=== PATIENT | male | born 1960 | race Caucasian/White ===

== ENCOUNTER 2024-04-27 11:49 | Inpatient (IN) | payer MEDICAID, SELFPAY ==
[2024-04-27] VITALS (8 sets, daily range): BP systolic 123–144; BP diastolic 78–90; PULSE 57–130; RESP 14–96; TEMP 36.2–36.8; O2SAT 96–98; BMI 23.6
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
--- NOTE | 2024-04-27 12:27 | XR_ITS ---
Examination: CT brain head without contrast. 2-D sagittal coronal reconstructions Date and time of exam: April 27, 2024 1230 hrs. Comparison May 19, 2018 Indications: CT stroke alert, onset focal neurologic deficit today CTDI: vol (mGy):50 DLP: (mGycm):1038 Technique: Multiple CT axial sections of the brain have been obtained, 5 mm slice thickness. Contrast has not been administered. 2-D sagittal, coronal reconstructions have been obtained Low dose protocols were performed. One or more of the following dose reduction techniques were used; automated exposure control, adjustment of the mA and/or KV according to patient size, use of iterative reconstruction technique. Findings: No significant ventricular enlargement. Intra-axial or extra-axial hemorrhage density is not seen. No mass effect or midline shift Basal cisterns are not remarkable. Fourth ventricle is midline. Cranial vault intact. Impression: Negative for acute hemorrhage, mass effect or midline shift Consider brain MRI follow-up stroke protocol
--- NOTE | 2024-04-27 12:27 | EKG_ITS ---
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
--- NOTE | 2024-04-27 12:27 | XR_ITS ---
Examination: CTA carotids with intravenous contrast CTA brain, head with intravenous contrast. 2-D sagittal, coronal reconstructions. 3-D reconstructions. Exam date and time: April 27, 2023 1242 hrs. Indications: Stroke alert, onset focal neurologic deficit today CTDI: vol (mGy) 17.7 DLP: (mGycm) 434 Technique: Multiple CTA axial brain, head carotid images post intravenous contrast injection 75 cc, [id number]. 2-D sagittal, coronal reconstructions. 3-D reconstructions, 3-D post processing including vascular maximum intensity projection images. Low dose protocols were performed. One or more of the following dose reduction techniques were used; automated exposure control, adjustment of the mA and/or KV according to patient size, use of iterative reconstruction technique. Findings: No significant common carotid carotid bifurcation or internal carotid artery stenoses Left vertebral artery dominant no critical vertebral artery stenoses No cerebral large vessel arterial occlusions, thrombus, dissection or cerebral aneurysm Impression: No significant neck arterial stenoses No cerebral large vessel arterial occlusions, thrombus, dissection or cerebral aneurysm
[2024-04-27 12:43] LABS: Basophils # (Auto) 0.1 Thou/mm3 (0.0-0.2); Basophils % (Auto) 1 % (0-2.5); Eosinophils # (Auto) 0.1 Thou/mm3 (0.0-0.5); Eosinophils % (Auto) 1 % (0-10); Hematocrit 52.3 % (41.0-53.0); Hemoglobin 17.9 g/dL (13.5-16.0); Immature Granulocytes % (Auto) 0 % (0-0); Immature Granulocytes Auto 0.03 Thou/mm3 (0.00-0.00); Lymphocytes # (Auto) 2.6 Thou/mm3 (1.0-4.8); Lymphocytes % (Auto) 27 % (10-50); Mean Corpuscular HGB Conc 34.2 g/dl (31.0-37.0); Mean Corpuscular Hemoglobin 32.6 pg (25.0-35.0); Mean Corpuscular Volume 95 fL (80-100); Monocytes # (Auto) 0.8 Thou/mm3 (0.0-0.8); Monocytes % (Auto) 8 % (0-12); Neutrophils # (Auto) 6.2 Thou/mm3 (1.8-7.7); Neutrophils % (Auto) 64 % (37-80); Nucleated Red Blood Cell % 0 /100 WBC (0); Platelet Count 262 Thou/mm3 (140-440); RDW Standard Deviation 50.4 fL (35.1-43.9); Red Blood Count 5.49 Miln/mm3 (4.50-5.90); White Blood Count 9.6 Thou/mm3 (3.8-10.6)
[2024-04-27 12:57] LABS: HCG Titer if Positive Negative
[2024-04-27 12:59] LABS: Partial Thromboplastin Time 29.1 Seconds (22.0-36.0); Prothrombin Time 11.1 Seconds (9.0-12.2)
--- NOTE | 2024-04-27 12:59 | PRELIM_ITS ---
CT scan of the head without intravenous contrast (axial sections with sagittal, coronal and 3D reform ats) April 27, 2024 at 1230 hoursClinical history: Focal neuro deficit, stroke suspected.Compariso n: No prior study is available for comparison at the time of interpretation. Findings:There is no kimberly dence of intracranial hemorrhage, mass effect or midline shift. No definitive wedge-shaped acute infa rcts are detected. There is mild volume loss. The calvarium is unremarkable. The mastoid air cells an d the visualized paranasal sinuses are clear.Impression:No evidence of acute infarct, intracranial he morrhage, mass effect or midline shift. If there are persistent clinical symptoms or additional clini silvino concerns, consider MRI. Mild volume loss.Discussion Details: Results verbally communicated to : Dr. Loomis at 12:43 PM 04/27/2024 Report Electronically Signed By: Hetal Greenberg 04/27/2024 12:58:43 PM [EST]
[2024-04-27 13:03] LABS: Alanine Aminotransferase 68 U/L (10-49); Albumin, Serum 4.8 gm/dL (3.4-4.8); Alkaline Phosphatase 106 U/L (46-116); Anion Gap 7 (7-16); Aspartate Amino Transferase 44 U/L (0-34); BUN/Creatinine Ratio 13 Ratio (12-20); Bilirubin,Total 0.8 mg/dL (0.3-1.2); Blood Urea Nitrogen 14 mg/dL (9-23); Calcium 10.3 mg/dL (8.3-10.6); Calcium (Corrected) 10.3 mg/dL (8.5-10.1); Chloride 104 mMol/L (98-107); Creatinine (Component) 1.1 mg/dL (0.6-1.3); Estimated Creatinine Clearance 70.5 mL/min (>60); Globulin 2.4 gm/dL (2.3-3.5); Glucose 100 mg/dL (74-106); Magnesium 2.1 mg/dL (1.6-2.6); Osmolality,Calculated 276 (275-295); Potassium 3.9 mMol/L (3.4-5.1); Sodium 138 mMol/L (136-145); Total Protein 7.2 gm/dL (5.7-8.2); Troponin I < 0.020 ng/mL (0.0-0.045); eGFR > 60 See Note
--- NOTE | 2024-04-27 13:14 | ESCONSULT_ITS ---
Tele Neuro Consultation Consultation Date 04/27/24 Most Recent Vital Signs Last Vital Signs Temp 98.0 F 04/27/24 12:07 Pulse 76 04/27/24 13:03 Resp 25 H 04/27/24 13:03 BP 137/87 H 04/27/24 12:07 Pulse Ox 96 04/27/24 12:07 O2 Del Method Room Air 04/27/24 12:07 Laboratory-Coagulation Panel PT 11.1 Seconds (9.0-12.2) 04/27/24 12:28 INR 1.0 (0.9-1.3) 04/27/24 12:28 APTT 29.1 Seconds (22.0-36.0) 04/27/24 12:28 Consultation Narrative [facility] Tele[facility]urology Consult Services Patient Name:???ANIVAL MULLINS Date of :???1960 Date of Service:???04/27/2024 12:27:08 Diagnosis:?H53.9 - Visual disturbance, unspecified Impression: ?63 yo RH M with PMH of HLD, who presents to ED with right eye visual disturbance. NIHSS of 0. Exam notable for impaired vision of the nasal/medial bear of the right eye. ?CTH without hemorrhage. Outside thrombolytic window. Fundoscopic exam in ED without obvious intraocular pathology. ?Differential includes branch retinal artery occlusion vs retinal pathology. ?Recommend initiating aspirin and admission for stroke work up, and ophthalmology evaluation. Our recommendations are outlined below. Recommendations: ? Stroke/Telemetry Floor ? Neuro Checks ? Bedside Swallow Eval ? DVT Prophylaxis ? IV Fluids, Normal Saline ? Euglycemia and Avoid Hyperthermia (PRN Acetaminophen) ? Hold Anticoagulation for Now ? Initiate or continue Aspirin 81 MG daily ? Antihypertensives PRN if Blood pressure is greater than 220/120 or there is a concern for End organ damage/contraindications for permissive HTN. If blood pressure is greater than 220/120 give labetalol PO or IV or Vasotec IV with a goal of 15% reduction in BP during the first 24 hours. Sign Out: ? Discussed with Emergency Department Provider Advanced Imaging:Advanced imaging has been ordered. Results pending. Metrics: Last Known Well: 04/27/2024 08:00:15 Dispatch Time: 04/27/2024 12:27:08 Arrival Time: 04/27/2024 11:49:51 Initial Response Time: 04/27/2024 12:29:37Symptoms: right eye vision loss. Initial patient interaction: 04/27/2024 12:38:06 NIHSS Assessment Completed: 04/27/2024 12:46:03Patient is not a candidate for Thrombolytic. Thrombolytic Medical Decision: 04/27/2024 12:46:04Patient was not deemed candidate for Thrombolytic because of following reasons: LKW outside 4.[address] head showed no acute hemorrhage or acute core infarct. Primary Provider Notified of Diagnostic Impression and Management Plan on: 04/27/2024 13:06:08 History of Present Illness:Patient is a 63 year old Male. Patient was brought by private transportation with symptoms of right eye vision loss. 63 yo RH M with PMH of HLD, who presents to ED with right eye visual disturbance. Patient reports onset of right eye vision loss this morning. It was painless but he sees lighting strikes and purple colors in his right eye visual field and he can make some things out but it seems to come and go. He had an episode of right eye blindness yesterday that lasted 2 minutes. He reports drinking a 6 pack of alcohol per day. Denies headache, eye pain, fever, rash, jaw claudication, trouble with speech or swallowing, numbness. ? Past Medical History: ?Hyperlipidemia ?There is no history of Coronary Artery Disease ?There is no history of Stroke Medications: No Anticoagulant use? No Antiplatelet use Reviewed EMR for current medications Allergies:? NKDA Social History: Smoking: Yes Alcohol Use: Yes Family History: There is no family history of premature cerebrovascular disease pertinent to this consultation ROS : 14 Points Review of Systems was performed and was negative except mentioned in HPI. Past Surgical History: There Is No Surgical History Contributory To Today?s Visit ? Examination: BP(137/87),?Pulse(82),?Blood Glucose(111) 1A: Level of Consciousness - Alert; keenly responsive?+ 0 1B: Ask Month and Age - Both Questions Right?+ 0 1C: Blink Eyes & Squeeze Hands - Performs Both Tasks?+ 0 2: Test Horizontal Extraocular Movements - Normal?+ 0 3: Test Visual Bear - No Visual Loss?+ 0 4: Test Facial Palsy (Use Grimace if Obtunded) - Normal symmetry?+ 0 5A: Test Left Arm Motor Drift - No Drift for 10 Seconds?+ 0 5B: Test Right Arm Motor Drift - No Drift for 10 Seconds?+ 0 6A: Test Left Leg Motor Drift - No Drift for 5 Seconds?+ 0 6B: Test Right Leg Motor Drift - No Drift for 5 Seconds?+ 0 7: Test Limb Ataxia (FNF/Heel-[place]) - No Ataxia?+ 0 8: Test Sensation - Normal; No sensory loss?+ 0 9: Test Language/Aphasia - Normal; No aphasia?+ 0 10: Test Dysarthria - Normal?+ 0 11: Test Extinction/Inattention - No abnormality?+ 0 NIHSS Score:?0 Pre-Morbid Modified Liberty Scale:0 Points = No symptoms at all Spoke with :?Dr. Lawson This consult was conducted in real time using interactive audio and video technology. Patient was informed of the technology being used for this visit and agreed to proceed. Patient located in hospital and provider located at home/office setting. Patient is being evaluated for possible acute neurologic impairment and high probability of imminent or life-threatening deterioration. I spent total of 51 minutes providing care to this patient, including time for face to face visit via telemedicine, review of medical records, imaging studies and discussion of findings with providers, the patient and/or family. Dr Elias Wells [facility] For Inpatient follow-up with [facility] physician please call [facility] at . As we are not an outpatient service for any post hospital discharge needs please contact the hospital for assistance. If you have any questions for the [facility] physicians or need to reconsult for clinical or diagnostic changes please contact us via [facility] at .
[2024-04-27] MEDS: Aspirin 325 MG TABLET PO (13:19)
--- NOTE | 2024-04-27 13:20 | PC.NURSE ---
A REQUEST TO [facility] FOR OPHTHALMOLOGY WAS FAXED, AND IMAGES WERE TRANSFER FROM [facility]
--- NOTE | 2024-04-27 13:26 | PC.NURSE ---
[facility] ON GETTING REPORT FROM CAROL THE PROVIDER
--- NOTE | 2024-04-27 13:40 | PRELIM_ITS ---
CT angiogram of the head and neck with intravenous contrast (axial sections with sagittal and coronal reformats): 3D/MIP reformats are not provided: April 27, 2024 at 1247 hours Clinical History: Foc al neuro deficit, stroke suspectedComparison: Concurrent noncontrast CT head performed today.Findings :Head: The internal carotid, middle and anterior cerebral arteries are patent bilaterally. The intrac ranial vertebral arteries are patent. The vertebrobasilar junction, basilar and posterior cerebral ar teries are patent. 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 origin of the left posterior cerebral ar hank is noted. No evidence of large vessel occlusion, critical stenosis or aneurysm.Neck: The aortic arch to the extent visualized as well as the origins of the right brachiocephalic, left common caroti d, and left subclavian arteries are patent. The common carotid arteries, carotid bulbs, and internal and external carotid arteries are patent. The origins of the vertebral arteries are unremarkable. The left vertebral artery is dominant. No evidence of vascular occlusion, critical stenosis, dissection or aneurysm.The soft tissues of the neck are unremarkable. Degenerative changes are identified in the spine. Emphysematous changes are noted in the visualised lungs.Impression: Head: No evidence of larg e vessel occlusion, critical stenosis or aneurysm.Neck: No evidence of vascular occlusion, critical s tenosis, dissection or aneurysm.Discussion Details: Results verbally communicated to : Dr. Londono at 01:33 PM 04/27/2024 Report Electronically Signed By: Todd Pdero 04/27/2024 1:39:37 PM [EST]
--- NOTE | 2024-04-27 14:59 | ESHP_ITS ---
Documentation for date of: 04/27/24 HPI History of Present Illness History of present illness: Chief complaint: Partial vision loss in the right eye HPI: Mr. Whelan is a 63-year-old pleasant male with past medical history of hyperlipidemia, chronic smoking and alcohol use disorder, who presented to the ED on 04/27/2020 for with acute right eye partial vision loss. Patient has experienced symptoms in the past, twice, which resolved spontaneously within an hour on both occasions. However on this occurrence, patient had persistent right eye visual field loss more prominent in the right lower visual field, since 8:30 AM this morning. Presentation to the ED close around 1 PM, when symptoms continue to persist which was unusual for him. He denies any recent infections, fever, headaches, loss of balance/dizziness, migraine or congestion. He has no other associated symptoms. There is no excessive lacrimation from the right eye, he denies any sensation of curtain falling over the visual field or discomfort around the orbital area. In the ED, vitals were within normal limits. Blood sugar on fingerstick 125 Mg/DL. Initial laboratory workup was remarkable for erythrocytosis Hb 17.9 but normal HCT 52.3%, normal coagulation panel and CMP fairly within normal limits. Head CT was negative for any acute findings. Head/neck CTA was also negative for any acute occlusion. EKG showed possible anterior myocardial infarction. Ophthalmology and therapy was consulted by ED, who recommended admission and stroke workup, and likely ophthalmologic pathology. Patient was admitted for the work-up and management of acute CVA rule out versus ocular migraine versus amaurosis fugax. Inpatient neurology Dr Fox is consulted, pending recommendations. Medication list: Statin therapy Vitamin D (OTC) Allergies: NKFDA Social history: Marital?Status:? Tobacco?Use:?>45 pack years ETOH?Use:?6 pack of beers a day for >15 years Drug?Note:?Denies Social?History?Note:?Lives?at home with family Family history: T2DM - mother Cancer - distant family Review of Systems Review of Systems Narrative Review of Systems: GENERAL: Denies fevers/chills or diaphoresis. HEENT: Denies headache. Denies nasal discharge. RT eye peripheral lower visual field loss NEURO: Denies unusual weakness or difficulty speaking. CARDIO: Denies chest pain or palpitations. PULM: Denies SOB, coughing, or wheezing. GI: Denies abdominal pain, N/V/C/D. Reports having BMs URO: Denies burning/itching/pain/urinary changes. MSK/EXT/SKIN: Denies joint/skeletal/muscle pain, issues/changes in upper or lower extremities, itchiness, or superficial pain. PSYCH: Cooperative, pleasant mood & affect. The rest of the review of systems is otherwise negative. Exam Vital Signs Temp Pulse Resp BP Pulse Ox O2 Del Method 97.8 F 60 17 123/78 96 Room Air 04/27/24 14:31 04/27/24 14:31 04/27/24 14:31 04/27/24 14:31 04/27/24 14:31 04/27/24 14:31 Narrative Exam Constitutional Alert, oriented x3 and comfortable HEENT Patent nares. Trachea midline. RT lateral lower visual field blurriness Respiratory Chest normal on inspection and clear to auscultation bilaterally. Cardiovascular S1 and S2 audible, RRR. No murmurs or carotid bruit. No gross JVD. Abdominal Soft and non tender to palpation in all quadrants. BS + Genitourinary No bladder tenderness, no flank pain. Normal to palpation. Musculoskeletal Extremities tone within normal limits. No LE edema. Neurological CN II - XII grossly intact. Extremity motor and sensation grossly intact. Skin Warm, dry and intact. No apparent lesions. Psychiatric Patient has a good affect, is cooperative Results: Labs 04/28/24 04:56 04/28/24 04:56 Labs: Short CBC 04/27/24 Range/Units 12:28 WBC 9.6 (3.8-10.6) Thou/mm3 Hgb 17.9 H* (13.5-16.0) g/dL Hct 52.3 (41.0-53.0) % Plt Count 262 (140-440) Thou/mm3 BMP 04/27/24 12:28 Sodium 138 Potassium 3.9 Chloride 104 Carbon Dioxide 27.0 BUN 14 Creatinine 1.1 Glucose 100 Calcium 10.3 Cardiac Enzymes 04/27/24 Range/Units 12:28 Troponin I < 0.020 (0.0-0.045) ng/mL Liver Function 04/27/24 Range/Units 12:28 Total Bilirubin 0.8 (0.3-1.2) mg/dL AST 44 H (0-34) U/L ALT 68 H (10-49) U/L Alkaline Phosphatase 106 (46-116) U/L Albumin 4.8 (3.4-4.8) gm/dL Quality Measures Quality Measures VTE prophylaxis and stroke Suspected type of Stroke: Unknown at this time Tenecteplase given: Reason(s) Tenecteplase not given: Stroke severity too mild (non-disabling) and Unable to determine eligibility not given Rehab services: PT evaluation ordered and Speech Language Pathology eval ordered VTE Prophylaxis: pharmaceutical Antithrombotic by day 2:: ordered Statin ordered: <75 y/o high intensity dose Anticoagulation ordered for A-fib or flutter (current or hx): not indicated Medications Home Medications and Allergies Home Medications ?Medication ?Instructions ?Recorded ?Confirmed ?Type ezetimibe 10 mg tablet 10 mg QDAY 04/27/24 04/27/24 History Allergies Allergy/AdvReac Type Severity Reaction Status Date / Time No Known Allergies Allergy Verified 04/27/24 11:52 Visit Medications Acetaminophen (Acetaminophen 325 Mg Tablet) 650 mg PO Q6H PRN PRN Reason: Fever >100.3 Stop: 05/27/24 14:23 Enoxaparin Sodium (Enoxaparin Sod Inj 40 Mg/0.4 Ml Syringe) 40 mg SC QDAY [facility] Stop: 05/12/24 08:59 Lactated Ringer's (Lactated Ringers) 1,000 mls @ 75 mls/hr IV .[id number] [facility] Stop: 04/28/24 14:29 Ondansetron HCl (Ondansetron Inj 2 Mg/Ml Inj 2 Ml) 4 mg IV Q4HR PRN PRN Reason: NAUSEA OR VOMITING Stop: 05/27/24 12:26 Ondansetron HCl (Ondansetron Inj 2 Mg/Ml Inj 2 Ml) 4 mg IV Q6H PRN; Protocol PRN Reason: NAUSEA OR VOMITING Stop: 05/27/24 14:23 Discontinued Medications Aspirin (Aspirin 325 Mg Tablet) 325 mg PO X1 ONE Stop: 04/27/24 13:12 Last Admin: 04/27/24 13:19 Dose: 325 mg Fluorescein Sodium (Fluorescein Sod 1 Mg Strp) 1 mg RIGHT EYE X1 ONE Stop: 04/27/24 12:20 Last Admin: 04/27/24 13:02 Dose: Not Given Labetalol HCl (Labetalol Inj 5 Mg/Ml Vial 20 Ml) 10 mg IVP X1 ONE Stop: 04/27/24 14:30 Tetracaine HCl (Tetracaine Pf Op Leslie 0.5% 4 Ml Drpette) 1 drop RIGHT EYE X1 ONE Stop: 04/27/24 12:20 Last Admin: 04/27/24 13:02 Dose: Not Given Assessment & Plan Plan Mr. Whelan is a 63-year-old pleasant male with past medical history of hyperlipidemia, chronic smoking and alcohol use disorder, who presented to the ED on 04/27/2020 for with acute right eye partial vision loss. Patient has experienced symptoms in the past, twice, which resolved spontaneously within an hour on both occasions. However on this occurrence, patient had persistent right eye visual field loss more prominent in the right lower visual field, since 8:30 AM this morning. Presentation to the ED close around 1 PM, when symptoms continue to persist which was unusual for him. He denies any recent infections, fever, headaches, loss of balance/dizziness, migraine or congestion. He has no other associated symptoms. There is no excessive lacrimation from the right eye, he denies any sensation of curtain falling over the visual field or discomfort around the orbital area. In the ED, vitals were within normal limits. Blood sugar on fingerstick 125 Mg/DL. Initial laboratory workup was remarkable for erythrocytosis Hb 17.9 but normal HCT 52.3%, normal coagulation panel and CMP fairly within normal limits. Head CT was negative for any acute findings. Head/neck CTA was also negative for any acute occlusion. EKG showed possible anterior myocardial infarction. Ophthalmology and therapy was consulted by ED, who recommended admission and stroke workup, and likely ophthalmologic pathology. Patient was admitted for the work-up and management of acute CVA rule out versus ocular migraine versus amaurosis fugax. Inpatient neurology Dr Fox is consulted, pending recommendations. 1. RT lateral lower visual field loss secondary to 2. Ischemic CVA r/o 3. Occular migraine vs. Amaurosis fugax in the setting of 4. Tobacco smoking (>45 pack years) - Head CT: Negative for any acute findings - Head CTA: Negative for occlusions - NIHSS of 0. Exam notable for impaired vision of the nasal/medial green of the right eye. CTH without hemorrhage. - TeleNeuro Dr Wells consulted, per recommendations, he is outside thrombolytic window. Initiate aspirin and admission for stroke work up, and ophthalmology evaluation. - History of > 45 pack years of smoking, tobacco only. Plan: Patient is started on stroke protocol - Neuro Checks q 4H - Head of Bed elevated to 30 Degrees - Avoid hyperthermia. PRN Acetaminophen for fever >100.3 - Allow permissive HTN. Antihypertensives if BP >220/120, with a goal of 15% reduction in BP during the first 24 hours - HbA1C, Lipid Panel, TSH ordered - Per neuro recs, Aspirin 325 mg x 1; Aspirin 81 mg p.o. daily from tomorrow - ECHO with bubble study ordered - Brain MRI without contrast ordered - DVT Prophylaxis with Lovenox 40 SC qD - Dr Fox consulted, pending in-house Neurology recommendations - PT eval not needed, patient is able to ambulate independently - Daily nicotine patch TOP ordered 5. Erythrocytosis - Hb 17.9, but normal hct 52.3% - Likely in the setting of dehydration Plan: - Patient is on aspirin 81 mg daily - Will monitor daily CBC, anticipate spontaneous correction 6. Hyperlipidemia Chronic condition, patient follows up with PCP who recently started him on statin therapy Plan: - Patient is on atorvastatin 80 mg HS - high intensity given possible CVA and age <75 years - Follow up AM lipid panel 7. Alcohol use, chronic Patient endorses drinking 6 pack of beers daily for over 15 years He denies any withdrawal symptoms when off of alcohol Plan: - Patient is on any CIWA protocol at this time - Will continue to monitor closely, if signs of withdrawal noted will start CIWA Health maintenance: Disposition: Admitted to telemetry, stroke rule out Diet: Low-sodium, dysphagia 3 Lines: pIVs GI Prophylaxis: Not indicated Thrombo Prophylaxis: Lovenox 40 mg SC daily Code status: DNR/DNI Plan of care discussed with attending Dr Cody , Celestino Moreno MD, PGY 2 Attending Provider Attestation/Addendum Cecilia, Keturah Cody DO, attest that I was physically present for the saucedo portions of the service and evaluated the patient with the resident and I reviewed and discussed the case with the resident and agree with the resident's findings and plans of care as documented above Patient is a 63-year-old male with past medical history of hyperlipidemia, chronic tobacco use and alcohol use who was brought to the ED due to sudden change in vision that began this morning. Patient states that he has a had recurrent symptoms in the past few months that lasts only seconds during which he sees purple lines and vision becomes blurry. On exam, patient endorses blurriness in his right eye, mainly in the upper quadrants and left lower quadrant of his visual field. Patient states that he can see the shape of objects in front of him, but cannot see the details due to the blurriness. He he also has surrounding purple lines in his field of vision. He endorses clear vision in his right lower quadrant of his right eye visual field otherwise. Patient has no other focal neurological deficits otherwise. Patient takes Lipitor and vitamin D at home. Patient was seen by telemetry neuro and recommended ophthalmology consult. However, ophthalmology at [facility] recommends admission for further rule out of acute CVA and can follow-up outpatient for any further ophthalmology workup. Will admit to telemetry for further workup and medical management possible CVA causing acute vision changes. Suspect that patient may have an ocular migraine as his symptoms are described. Will follow- up with neurology recommendations otherwise an MRI.
[2024-04-27] MEDS: RINGERS LACTATED 1000 ML 1,000 ML 75 ML IV (15:17)
--- NOTE | 2024-04-27 18:51 | PC.CC ---
Pt Enrique Whelan is a 63 yr old male admitted to hospitalist services for CVA r/o. [facility] CC met with pt at bedside to complete initial assessment. At time of encounter pt is noted to be alert and oriented to person, place and situation. Pt expressed understanding admission orders and is in agreement with plan of care. Pt able to confirm all demographic information. Pt is from [place] [id number] [place]. Pt lives at home with his life partner Tommy Hargrove [phone]. Pt identifies Ms. Gonzalez as his surrogate DM. Pt reports he will be retiring in 16 days. At baseline pt is independent with ambulation and with completion of his ADLs. Pt does not require supplemental O2 in the home. Pt is not diabetic and is not on dialysis. Pt is followed by [facility]. Pt reports feeling safe in his home. Pt has access to running water and all working utilities. Pt confirms food items in the home. At D/c pt wants to return home. with family transporting him. [facility] CC offered pt information for Advance Directive and pt declined. Pt is a DNR status.
[2024-04-27] MEDS: ATORVASTATIN CALCIUM 20 MG TABLET 80 MG PO (20:53)
--- NOTE | 2024-04-27 21:53 | PC.NURSE ---
MD Maldonado notified that pt went bradycardia as low as 47 but when I went in the room to assess patient, he was asymptomatic.
[2024-04-28] VITALS: BP 131/82; PULSE 53; PULSE 61; RESP 21; TEMP 36.2; O2SAT 95
--- NOTE | 2024-04-28 | XR_ITS ---
Examinations: MRI Brain without intravenous contrast. MRA brain without intravenous contrast. MRA carotids without intravenous contrast 3-D vascular reconstructions Date and time of exam: April 28, 2024 1449 hours INDICATIONS: Loss of vision episode in the right eye yesterday Technique: Multiple axial and sagittal images of the brain have been obtained MRA brain carotid images without contrast obtained, including 3-D postprocessing, vascular maximum intensity projection images Findings: Sell[place] is not enlarged. The optic chiasm and infundibular stalk are not remarkable. Prepontine and interpeduncular cisterns are not enlarged. No localized enlargement of the medulla or uli. Fourth ventricle and cerebellar tonsils normal in position. Subacute hemorrhage is not seen. Fourth ventricle is midline. Mass in the cerebellopontine angle region is not evident. 7th and 8th nerve complexes exhibits symmetry. Globes are symmetrical with no retro-orbital mass. Focal punctate focus increased signal in the right parietal white matter, FLAIR image 15 Diffusion-weighted images demonstrate no focus of restricted diffusion Mass-effect upon the ventricular system is not identified. MRA carotid images no significant stenoses. MRA brain images no large vessel occlusions Impression: Punctate focus increased signal in the right parietal white matter, demyelinating disease pattern versus chronic microvascular white matter change, the appearance should be clinically correlated
--- NOTE | 2024-04-28 | XR_ITS ---
Examination: Carotid arterial duplex scan, ultrasound. Date and time of exam: April 28, 2024 0008 hrs. Indications: Onset of blurred vision right eye today Technique: Multiple sonographic images have been obtained of the carotid arteries and vertebral arteries, B-mode/grayscale imaging and Doppler spectral analysis and color flow Peak systolic and diastolic velocities have been recorded. Systolic diastolic ratios have been calculated. Findings: Right peak systolic velocities: Distal internal carotid artery peak systolic velocity is 0.8 M/sec Proximal internal carotid artery peak systolic velocity is 0.5 M/sec Carotid bifurcation peak systolic velocity is 0.7 M/sec External carotid artery peak systolic velocity is 0.6 M/sec Vertebral artery flow is antegrade. Left peak systolic velocities: Distal internal carotid artery peak systolic velocity is .8 M/sec Proximal internal carotid artery peak systolic velocity is 0.5 M/sec Carotid bifurcation peak systolic velocity is 0.5 M/sec External carotid artery peak systolic velocity is 1.4 M/sec Vertebral artery flow is antegrade Doppler waveform analysis demonstrates no thinning Impression: Right internal carotid artery demonstrates 0-10% stenosis. Left internal carotid artery demonstrates 0-10% stenosis.
--- NOTE | 2024-04-28 01:46 | PRELIM_ITS ---
Duplex-Ultrasound carotid. April 28, 2024 at 0008 hours Clinical history: Vision changes.No prior study is available for comparison. Findings:[place]ona scale, color flow and spectral Doppler evaluation of the carotid and vertebral arteries were performed bilaterally.Right: The common carotid, external/in ternal carotid and vertebral arteries demonstrate normal color flow and spectral profile. There are p laques in the right carotid bulb, internal carotid and external carotid arteries. Normal antegrade fl ow is noted in the vertebral artery.Left: The common carotid, external/internal carotid and vertebral arteries demonstrate normal color flow and spectral profile. There are plaques in the common carotid , carotic bulb, internal carotid and external carotid arteries. Normal antegrade flow is noted in the vertebral artery.Doppler profile:RightLeftICA0.76 cm/sec0.75 cm/secCCA0.56 cm/sec0.43 cm/secICA/CCA1 .4 1.7Impression:No hemodynamically significant carotid artery stenosis bilaterally. Normal antegrade flow in the vertebral arteries bilaterally.Plaques in bilateral carotid arteries. Report Electronic ally Signed By: Anthony Gaspar 04/28/2024 1:46:05 AM [EST]
[2024-04-28 04:00] VITALS: BP 109/72; PULSE 54; RESP 16; TEMP 36.2; O2SAT 95
[2024-04-28 05:49] VITALS: BMI 24.0
[2024-04-28 06:04] LABS: Basophils # (Auto) 0.1 Thou/mm3 (0.0-0.2); Basophils % (Auto) 1 % (0-2.5); Eosinophils # (Auto) 0.2 Thou/mm3 (0.0-0.5); Eosinophils % (Auto) 3 % (0-10); Hematocrit 51.2 % (41.0-53.0); Hemoglobin 17.2 g/dL (13.5-16.0); Immature Granulocytes % (Auto) 0 % (0-0); Immature Granulocytes Auto 0.03 Thou/mm3 (0.00-0.00); Lymphocytes # (Auto) 2.3 Thou/mm3 (1.0-4.8); Lymphocytes % (Auto) 30 % (10-50); Mean Corpuscular HGB Conc 33.6 g/dl (31.0-37.0); Mean Corpuscular Hemoglobin 32.6 pg (25.0-35.0); Mean Corpuscular Volume 97 fL (80-100); Monocytes # (Auto) 0.6 Thou/mm3 (0.0-0.8); Monocytes % (Auto) 8 % (0-12); Neutrophils # (Auto) 4.5 Thou/mm3 (1.8-7.7); Neutrophils % (Auto) 58 % (37-80); Nucleated Red Blood Cell % 0 /100 WBC (0); Platelet Count 249 Thou/mm3 (140-440); RDW Standard Deviation 51.4 fL (35.1-43.9); Red Blood Count 5.28 Miln/mm3 (4.50-5.90); White Blood Count 7.7 Thou/mm3 (3.8-10.6)
[2024-04-28 06:54] LABS: Anion Gap 7 (7-16); BUN/Creatinine Ratio 16 Ratio (12-20); Blood Urea Nitrogen 14 mg/dL (9-23); Calcium 9.3 mg/dL (8.3-10.6); Carbon Dioxide 24.7 mMol/L (20.0-31.0); Cardiac Risk Estimate 5.9 RATIO (4.0-6.7); Chloride 106 mMol/L (98-107); Cholesterol 205 mg/dL (132-200); Creatinine (Component) 0.9 mg/dL (0.6-1.3); Estimated Creatinine Clearance 86.2 mL/min (>60); Glucose 88 mg/dL (74-106); HDL Cholesterol 35 mg/dL (40-60); LDL Cholesterol,Calculated 117 mg/dL (0-130); Magnesium 2.2 mg/dL (1.6-2.6); Osmolality,Calculated 275 (275-295); Sodium 138 mMol/L (136-145); Thyroid Stimulating Hormone 5.03 uIU/mL (0.55-4.78); Triglycerides 265 mg/dL (30-150); eGFR > 60 See Note
[2024-04-28 06:59] LABS: Glucose Estimated Average 97 mg/dL (80-131)
--- NOTE | 2024-04-28 07:20 | PD.RESPRO ---
Documentation for date of: 04/28/24 Exam Vital Signs Temp Pulse Resp BP Pulse Ox O2 Del Method 97.2 F 54 L 16 109/72 95 Room Air 04/28/24 04:00 04/28/24 04:00 04/28/24 04:00 04/28/24 04:00 04/28/24 04:00 04/28/24 04:00 Detailed Eye Exam Visual acuity: Visual Acuity Visual Acuity Uncorrected [ 20/20 Left] Visual Acuity Uncorrected [ unable to see Right] Objective Labs 04/28/24 04:56 04/28/24 04:56 Labs: Laboratory Results - last 24 hr 04/27/24 04/28/24 12:28 04:56 WBC 9.6 7.7 RBC 5.49 5.28 Hgb 17.9 H* 17.2 H Hct 52.3 51.2 MCV 95 97 MCH 32.6 32.6 MCHC 34.2 33.6 RDW Std Deviation 50.4 H 51.4 H Plt Count 262 249 Neut % (Auto) 64 58 Lymph % (Auto) 27 30 Armstrong % (Auto) 8 8 Eos % (Auto) 1 3 Baso % (Auto) 1 1 Neut # (Auto) 6.2 4.5 Lymph # (Auto) 2.6 2.3 Armstrong # (Auto) 0.8 0.6 Eos # (Auto) 0.1 0.2 Baso # (Auto) 0.1 0.1 Immature Gran # (Auto) 0.03 H 0.03 H Absolute Nucleated RBC 0.00 0.00 Immature Gran % 0 0 Nucleated RBC % 0 0 PT 11.1 INR 1.0 APTT 29.1 Sodium 138 138 Potassium 3.9 4.0 Chloride 104 106 Carbon Dioxide 27.0 24.7 Anion Gap 7 7 BUN 14 14 Creatinine 1.1 0.9 Estim Creat Clear Calc 70.5 86.2 eGFR > 60 > 60 BUN/Creatinine Ratio 13 16 Glucose [address] Glu mg/dL 97 Hemoglobin A1c 5.0 Calculated Osmolality 276 275 Calcium 10.3 9.3 Corrected Calcium 10.3 H Magnesium 2.1 2.2 Total Bilirubin 0.8 AST 44 H ALT 68 H Alkaline Phosphatase 106 Troponin I < 0.020 Total Protein 7.2 Albumin 4.8 Globulin 2.4 Albumin/Globulin Ratio 2.0 Triglycerides 265 H Cholesterol 205 H LDL Cholesterol, Calc 117 HDL Cholesterol 35 L Cholesterol/HDL Ratio 5.9 TSH 5.03 H HCG (Qual) Negative Quality Measures Quality Measures VTE prophylaxis and stroke Suspected type of Stroke: Unknown at this time Tenecteplase given: Reason(s) Tenecteplase not given: Stroke severity too mild (non-disabling) and Unable to determine eligibility not given Assessment & Plan Assessment Current Active Medications: Generic Name Dose Route Start Last Admin Trade Name Freq PRN Reason Stop Dose Admin Acetaminophen 650 mg 04/27/24 14:24 Acetaminophen 325 Mg Tablet PO 05/27/24 14:23 Q6H PRN Fever >100.3 Aspirin 81 mg 04/28/24 09:00 Aspirin Ec 81 Mg Tabec PO 05/28/24 08:59 DAILY MYLENE Atorvastatin Calcium 80 mg 04/27/24 21:00 04/27/24 20:53 Atorvastatin Calcium 20 Mg Tablet PO 05/27/24 20:59 80 mg HS MYLENE Administration Enoxaparin Sodium 40 mg 04/28/24 09:00 Enoxaparin Sod Inj 40 Mg/0.4 Ml Syringe SC 05/12/24 08:59 QDAY MYLENE Lactated Ringer's 1,000 mls @ 75 mls/hr 04/27/24 14:30 04/27/24 15:17 Lactated Ringers IV 04/28/24 14:29 75 mls/hr .[id number] MYLENE Administration Nicotine 14 mg 04/27/24 15:45 04/27/24 19:58 Nicotine Patch 14 Mg/24 Hr Patch.Td24 TOP 05/27/24 15:44 Not Given Q24H MYLENE Ondansetron HCl 4 mg 04/27/24 14:24 Ondansetron Inj 2 Mg/Ml Inj 2 Ml IV 05/27/24 14:23 Q6H PRN NAUSEA OR VOMITING Protocol Plan In summary: 63-year-old male with PMHx of HLD, chronic smoker, alcohol use disorder presented with acute right eye partial vision loss, admitted for acute CVA rule out versus ocular migraine. CT head and head/neck CTA were negative for acute pathology. Ophthalmology and neurology following, appreciate recommendations. no changes in vision, still seeing white spots in left eye Vital stable Hemoglobin 17.2 yesterday 17.9 Triglyceride 265, cholesterol 205, TSH 5.03 Bilateral carotid 0 to 10% stenosis Neuro consult pending MRI pending # RT lateral lower visual field loss likely 2/2 # Ischemic CVA r/o # Occular migraine Zentz with 1 month of waxing waning right vision impairment, that became persistent today prior to admission Exam notable for impaired vision of the nasal/medial green of the right eye Ophthalmology consulted, recommended admission for stroke protocol Head CT and head CTA negative for occlusion or acute pathology. NIHSS score of 0 Started on ASPIRIN per teleneuro recommendations A1c 5.0, TGC 265, cholester 205, TSH 5.03 Symptoms unchanged but not worse than before MRI showed punctuate focus increased signal in right parietal white matter, demyelinating disease pattern versus chronic microvascular white matter changes Pending neurology, Dr. Fox's recommendations ? Continue ASPIRIN 81 mg daily ? Neurochecks q.4 hours. ? Head elevation >30 degrees ? TYLENOL for fever greater than 100.3 ? Permissive hypertension, BP below 220/120 ? Physical therapy ? Pending echo with bubble study ? Pending neurology recommendations ? Managing hyperlipidemia as below # Tobacco smoking (>45 pack years) Consulted on cessation management ? NICOTINE patch # Erythrocytosis ? improving - Hb 17.9, but normal hct 52.3% - Likely in the setting of dehydration Plan: - Patient is on aspirin 81 mg daily - Will monitor daily CBC, anticipate spontaneous correction 6. Hyperlipidemia Chronic condition, patient follows up with PCP who recently started him on statin therapy Plan: - Patient is on atorvastatin 80 mg HS - high intensity given possible CVA and age <75 years - Follow up AM lipid panel - follow up PCP or end for Repatha 7. Alcohol use, chronic Patient endorses drinking 6 pack of beers daily for over 15 years He denies any withdrawal symptoms when off of alcohol Plan: - Patient is on any CIWA protocol at this time - Will continue to monitor closely, if signs of withdrawal noted will start CIWA
[2024-04-28 08:00] VITALS: BP 125/88; PULSE 62; PULSE 86; RESP 18; TEMP 36.4; O2SAT 95
[2024-04-28 08:00] LABS: Free T4 (Free Thyroxine) 1.02 ng/dL (0.89-1.76)
[2024-04-28] MEDS: ASPIRIN EC 81 MG TABEC PO (08:04)
[2024-04-28] MEDS: ENOXAPARIN SOD INJ 40 MG/0.4 ML SYRINGE SC (08:04)
[2024-04-28] MEDS: RINGERS LACTATED 1000 ML 1,000 ML 100 ML IV (09:00)
[2024-04-28 12:00] VITALS: BP 130/80; PULSE 58; PULSE 71; RESP 17; TEMP 36.8; O2SAT 96
[2024-04-28 16:00] VITALS: BP 151/94; PULSE 67; PULSE 68; RESP 22; TEMP 36.5; O2SAT 96
--- NOTE | 2024-04-28 17:35 | ESDS_ITS ---
<Statement entered by Keturah Cody DO - 04/29/24 09:40> I, Keturah Cody DO, attest that I was physically present for the saucedo portions of the service and evaluated the patient with the resident and I reviewed and discussed the case with the resident and agree with the resident's findings and plans of care as documented above <Statement entered by Celestino Moreno MD - 04/28/24 19:26> Patient was examined with the team including attending physician. Note reviewed, I agree with the discharge plan as documented. - Celestino Moreno MD, PGY 2 Planned Discharge Date 04/28/24 DS: Providers Provider Date of admission: 04/27/24 14:24 Primary care physician: Salty Fajardo PA-C Admitting Provider: Celestino Moreno MD Attending Provider on Admission: Keturah Cody DO Consults: 04/27/24 12:27 Consult to Neurology / Tele-Neurology Routine Comment: Consulting Provider: [facility] 04/27/24 14:30 Consult to Neurology / Tele-Neurology Routine Comment: Consulting Provider: Phong Fox Attending Provider on DC: Dr. Char Cody DO Discharging Provider: Dr. Char Cody DO DS: Diagnosis Problem List Completed Was Problem List Reviewed/Reconciled?: Yes Hospital Course Hospital Course Hospital course: ADMISSION DIAGNOSIS: # Suspected Occular migraine #Acute CVA, ruled out # Tobacco smoking (>45 pack years) # Erythrocytosis ? improving # Hyperlipidemia # Alcohol use, chronic In summary: 63-year-old male with PMHx of HLD, chronic smoker, alcohol use disorder presented with acute right eye partial vision loss, admitted for acute CVA rule out versus ocular migraine. CT head and head/neck CTA were negative for acute pathology. Right and left internal carotid ultrasound showed 0-10% stenosis. MRI showed Punctate focus increased signal in the right parietal white matter, demyelinating disease pattern versus chronic microvascular white matter change. Neurology was following who has cleared patient for discharged and recommended discharge on ASPIRIN and STATiN, to follow-up with neurology and ophthalmology outpatient. Symptoms more consistent with an ocular migraine. Kia ent advised to cut back on alcohol and tobacco use. Patient stable at the time of discharge. PATIENT INSTRUCTIONS: Please f/u with PCP within 1 week of discharge Please f/u ophthalmology outpatient. Cut back on alcohol and tobacco use DO NOT DRIVE UNTIL CLEARED FROM THE Ophthalmologists Return to ED if symptoms worsen, persist or new symptoms develop Continue taking the following medication: ? ATORVASTATIN 20 mg daily at night ? ASPIRIN 81 mg daily Stop taking the following medication ? EZETIMIBE 10 mg daily Patient case was discussed with attending, Dr. Keturah Cody DO and senior r bryan Cardona and Dr. Moreno. Rainer Duncan DO PGYI Time Spent with Patient Time attestation: Total time spent providing and/or coordinating discharge services: >30min Exam Vital Signs Temp Pulse Resp BP Pulse Ox O2 Del Method 97.7 F 67 22 H 151/94 H 96 Room Air 04/28/24 16:00 04/28/24 16:00 04/28/24 16:00 04/28/24 16:00 04/28/24 16:00 04/28/24 16:00 Narrative Exam Constitutional Alert, oriented x3 and comfortable HEENT Patent nares. Trachea midline. RT lateral lower visual field blurriness Respiratory Chest normal on inspection and clear to auscultation bilaterally. Cardiovascular S1 and S2 audible, RRR. No murmurs or carotid bruit. No gross JVD. Abdominal Soft and non tender to palpation in all quadrants. BS + Genitourinary No bladder tenderness, no flank pain. Normal to palpation. Musculoskeletal Extremities tone within normal limits. No LE edema. Neurological CN II - XII grossly intact. Extremity motor and sensation grossly intact. Skin Warm, dry and intact. No apparent lesions. Psychiatric Patient has a good affect, is cooperative Detailed Eye Exam Visual acuity: Visual Acuity Visual Acuity Uncorrected [ 20/20 Left] Visual Acuity Uncorrected [ unable to see Right] Discharge Plan Plan Patient Disposition: HOME (Self Care) Patient condition on transfer: Stable Prescriptions/Referrals Prescriptions/Med Rec: New atorvastatin 20 mg Tablet 80 mg PO HS 30 Days Qty: 120 0RF aspirin 81 mg Tablet,Delayed Release (Dr/Ec) 81 mg PO DAILY 30 Days Qty: 30 0RF Discontinued ezetimibe 10 mg tablet 10 mg QDAY Patient Comments: TAKE 1 TABLET BY MOUTH EVERY DAY Referrals: Phong Fox MD [Physician] - Salty Fajardo PA-C [Primary Care Provider] - Patient/Caregiver Discharge Instructions Other Discharge Activity Instructions:: Please f/u with PCP within 1 week of discharge Please f/u ophthalmology outpatient. Cut back on alcohol and tobacco use DO NOT DRIVE UNTIL CLEARED FROM THE Ophthalmologists. Education Materials: Symptoms of Stroke, Migraines and Cluster Headaches, How the Eye Works Print Language: Swedish Stand Alone Forms: Aishwarya Award Info., Patient Portal Info Letter Discharge Order Discharge Orders: Discharge (Routine); Ordered 04/28/24 Ordered By: Keturah Cody Quality Discharge Quality Measures VTE prophylaxis
[2024-04-28 18:30] VITALS: BP 143/82; PULSE 62; RESP 22; TEMP 36.3; O2SAT 99
--- NOTE | 2024-04-28 21:08 | PD.NEUROCONS ---
History of Present Illness Data of Consult Requesting Physician: Keturah Cody DO Primary Care Provider: Salty Fajardo PA-C Consult Narrative History of present illness: Mr. Whelan is a 63-year-old male with newly diagnosed hyperlipidemia, chronic smoking and alcohol use disorder, who presented to the ER on 04/27/2024 for worsening right eye partial vision loss. Patient has experienced symptoms in the past, twice, which resolved spontaneously within an hour on both occasions. However on this occurrence, patient had persistent right eye visual field loss more prominent in the right lower visual field, since 8:30 AM this morning. He was seen in the ER around 1 PM, when symptoms continue to persist which was unusual for him. He denies any recent infections, fever, headaches, loss of balance/dizziness, migraine or congestion. He has no other associated symptoms. There is no excessive lacrimation from the right eye, he denies any sensation of curtain falling over the visual field or discomfort around the orbital area. Workup in the ER: Vitals were within normal limits. Labs: Blood sugar on fingerstick 125 Mg/DL. Initial laboratory workup was remarkable for erythrocytosis Hb 17.9 but normal HCT 52.3%, normal coagulation panel and CMP fairly within normal limits. Imaging: Head CT was negative for any acute findings. Head/neck CTA was also negative for any acute occlusion. EKG showed possible anterior myocardial infarction. Ophthalmology and neurology was consulted by ED, who recommended admission and stroke workup, and likely ophthalmologic pathology. Patient was admitted for the work-up and management of acute CVA rule out versus ocular migraine versus amaurosis fugax. Inpatient neurology Dr Fox is consulted, pending recommendations. cc:: cc: Keturah Cody DO Review of Systems Review of Systems Systems Reviewed: All systems reviewed, normal except as documented Past Medical History Family History FAMILY HISTORY: Negative Family Neurologic Problems, Family Psychiatric Problems, Family Respiratory Disorders, Family Cardiac Disorders, Family Gastrointestinal Problems, Family Genitourinary Problems, Family Endocrine Disorders, Family Reproductive Disorders, Family Musculoskeletal Disorders, Family Cancer, Family Surgery or Family Anesthesia Reaction Social History SMOKING STATUS: Current every day smoker (1 pack a day) SUBSTANCE USE: does not use ALCOHOL FREQUENCY: 0-2 Drinks per Day Past Medical History Comments PMH COMMENT: hyperlipidemia Meds Home Medications and Allergies Allergies Allergy/AdvReac Type Severity Reaction Status Date / Time No Known Allergies Allergy Verified 04/27/24 11:52 Exam - Neurology Vital Signs Temp Pulse Resp BP Pulse Ox O2 Del Method 97.4 F 62 22 H 143/82 H 99 Room Air 04/28/24 18:30 04/28/24 18:30 04/28/24 18:30 04/28/24 18:30 04/28/24 18:30 04/28/24 18:30 Narrative Exam GENERAL APPEARANCE: Well hydrated, well-nourished in no acute distress. HEENT: Normocephalic, atraumatic, extraocular movements intact. Pupils: Equal reacting to light and accommodation NECK: Supple, no JVD or bruits. CARDIOVASULAR: Heart: S1, S2 heard, regular without S3-S4 or murmur no rubs or gallops. LUNGS/CHEST: Clear to auscultation bilaterally. No rails, rhonchi, or wheezing. Normal inspection. ABDOMEN: Soft, nontender, with normal bowel sounds. No pulsatile masses. No rebound, rigidity, or guarding. Normal inspection and palpation. EXTREMITIES: Normal inspection and palpation. No edema, clubbing or cyanosis. SKIN: Warm and dry without rashes. Normal inspection. MUSCULOSKELETAL: No cervical, thoracic, lumbar or midline bony tenderness. Normal inspection. NEURO: Alert, awake and oriented x3. Cranial nerves: II through XII grossly intact. Speech and language: Normal with no dysarthria or dysphasia. Motor system: Tone and bulk: Normal: Strength: 5 out of 5 in all 4 extremities; No pronator drift noted. Deep tendon reflexes: 2+ bilaterally symmetrical. Plantar reflex: Downgoing bilaterally. Sensory system: Intact to all modalities of sensation bilaterally. Coordination: Intact to [id number] and [id number] test bilaterally. No ataxia, no dysmetria, or dysdiadochokinesia noted. No intention tremors noted. Gait: Normal. Toe, heel, tandem walk all are normal. Romberg: Negative. No signs of meningeal irritation noted. PSYCHIATRIC: Normal mood and affect. Denies homicidal or suicidal ideation. Detailed Eye Exam Visual acuity: Visual Acuity Visual Acuity Uncorrected [ 20/20 Left] Visual Acuity Uncorrected [ unable to see Right] Results Labs 04/28/24 04:56 04/28/24 04:56 Labs: Short CBC 04/28/24 Range/Units 04:56 WBC 7.7 (3.8-10.6) Thou/mm3 Hgb 17.2 H (13.5-16.0) g/dL Hct 51.2 (41.0-53.0) % Plt Count 249 (140-440) Thou/mm3 [facility] 04/28/24 04:56 Sodium 138 Potassium 4.0 Chloride 106 Carbon Dioxide 24.7 BUN 14 Creatinine 0.9 Glucose 88 Calcium 9.3 Assessment & Plan Assessment and plan (1) Subjective visual disturbance of right eye: Status: Acute Assessment and plan: Reassurance given to the patient regarding the negative workup including MRI brain Advised him to take aspirin 81 mg and needs ophthalmology evaluation as an outpatient. I will see him back in 2 weeks upon referral from his primary care physician. (2) Hyperlipidemia: Status: Acute Assessment and plan: Continue with statin
[2024-05-01 07:06] LABS: PTT-LA Screen 34 seconds (< OR = 40); dRVVT Screen 34 seconds (< OR = 45)
== END 2024-04-28 18:42 | disposition home or self-care (01) | DRG 82 ==
LOC: SERX 14:41 → SERHOLD 14:59 → S2NX 20:26
PROVIDERS: Nurse Practitioner Family; Student in an Organized Health Care Education/Training Program; Admitting Provider Internal Medicine; Emergency Provider Emergency Medicine; PCP Physician Assistant; Visit Provider Internal Medicine
DX: H54.61 Unqualified visual loss, right eye, normal vision left eye (principal); F17.210 Nicotine dependence, cigarettes, uncomplicated; E78.5 Hyperlipidemia, unspecified; D75.1 Secondary polycythemia; E86.0 Dehydration; F10.90 Alcohol use, unspecified, uncomplicated; Z66 Do not resuscitate
CPT/HCPCS: 36415; 70450; 70496; 70498; 70544; 80048; 80053; 80061; 80307; 81001; 83036; 83735; 84439; 84443; 84484; 84703; 85025; 85610; 85613; 85730; 87086; 93005; 93880; 99285; A4649; J1650; J7120; Q9967; A9270